=== PATIENT | female | born 1985 | race Two or more races ===

== ENCOUNTER 2024-10-13 08:24 | Outpatient (CLI) | payer OTHER | END 2024-10-13 08:30 | disposition home or self-care (01) | LOC: PRENATAL 08:24 | PROVIDERS: ATTEND Obstetrics & Gynecology Maternal & Fetal Medicine | DX: O36.80X0 Pregnancy with inconclusive fetal viability, not applicable or unspecified (principal); Z36.82 Encounter for antenatal screening for nuchal translucency; O99.280 Endocrine, nutritional and metabolic diseases complicating pregnancy, unspecified trimester; O09.519 Supervision of elderly primigravida, unspecified trimester; Z14.8 Genetic carrier of other disease; Z3A.13 13 weeks gestation of pregnancy ==

== ENCOUNTER 2024-11-30 08:13 | Outpatient (CLI) | payer OTHER | END 2024-11-30 09:09 | disposition home or self-care (01) | LOC: PRENATAL 08:13 | PROVIDERS: ATTEND Obstetrics & Gynecology Maternal & Fetal Medicine | DX: O44.00 Complete placenta previa NOS or without hemorrhage, unspecified trimester (principal); O99.280 Endocrine, nutritional and metabolic diseases complicating pregnancy, unspecified trimester; O09.519 Supervision of elderly primigravida, unspecified trimester; Z3A.19 19 weeks gestation of pregnancy ==

== ENCOUNTER → 2025-03-02 09:20 | Outpatient (CLI) | payer OTHER | END | disposition home or self-care (01) | LOC: PRENATAL 09:20 | PROVIDERS: ATTEND Obstetrics & Gynecology Maternal & Fetal Medicine | DX: O26.849 Uterine size-date discrepancy, unspecified trimester (principal); O36.8199 Decreased fetal movements, unspecified trimester, other fetus; O99.280 Endocrine, nutritional and metabolic diseases complicating pregnancy, unspecified trimester; O09.519 Supervision of elderly primigravida, unspecified trimester; Z3A.33 33 weeks gestation of pregnancy ==

== ENCOUNTER 2025-04-26 01:18 | Outpatient (CLI) | payer OTHER ==
[2025-04-26 01:00] VITALS: BP 111/73
[2025-04-26 01:22] VITALS: BP 111/73
[2025-04-26] MEDS ORDERED: RINGERS SOLUTION,LACTATED 1,000 ML IV SCH (01:30)
[2025-04-26 02:19] LABS: URINE APPEARANCE Clear; URINE BILIRRUBIN Negative (NEGATIVE); URINE BLOOD Large; URINE COLOR Yellow; URINE GLUCOSE Negative (NEGATIVE); URINE KETONE Negative (NEGATIVE); URINE LEUKOCYTE Trace; URINE NITRATE Negative; URINE PROTEIN Negative (NEGATIVE); URINE UROBILINOGEN 0.2 E.U./dl
[2025-04-26 02:23] LABS: URINE BACTERIA 317.8 uL (0.0-1933); URINE EPITHELIAL CELLS 24.1 uL (0.0-38.8); URINE RBC 2.3 uL (0.0-20.8); URINE WBC 50.2 uL (0.0-23.2)
[2025-04-26 02:29] LABS: URINE CAST 0.00 uL (0.0-1.40)
[2025-04-26 02:57] LABS: BASO % 1.0 % (0.1-1.2); EOS % 4.1 % (0.7-7.0); LYMPH % 23.6 % (19.3-53.1); MEAN PLATELET VOLUME 11.40 fl (9.4-12.4); MONO % 7.0 % (4.7-12.5); NEUT % 63.2 % (34.0-71.1); RED CELL DISTRIBUTION WIDTH 13.3 % (11.6-14.4)
[2025-04-26 02:58] LABS: EOS # 0.40 (0.04-0.54); LYMPH # 2.32 (1.18-3.74); MONO # 0.69 (0.24-0.82); NEUT # 6.23 (1.56-6.13)
[2025-04-26 04:20] VITALS: BP 115/61
[2025-04-26] MEDS ORDERED: SYNTHROID50 MCG PO (07:07)
[2025-04-26] MEDS ORDERED: PRENATABS RX T1 EACH PO (07:08)
== END 2025-04-26 07:12 | disposition still patient (30) ==
LOC: OBS/DEL 01:18 → LDR 01:22 → OBS/DEL 01:24
PROVIDERS: Specialist; ATTEND Student in an Organized Health Care Education/Training Program
DX: O26.893 Other specified pregnancy related conditions, third trimester (principal)